=== PATIENT | male | born 1990 | race American Indian/Alaskan Native ===

== ENCOUNTER 2019-10-26 07:20 | Outpatient (CLI) | payer OTHER ==
--- NOTE | 2019-10-26 09:07 | Magnetic Resonance Report ---
MR RIGHT SHOULDER WITHOUT CONTRAST HISTORY: Right shoulder pain, unspecified right rotator cuff tear or rupture COMPARISON: None. TECHNIQUE: Routine noncontrast MRI of the right shoulder obtained. CONTRAST: None. FINDINGS: Supraspinatus tendon: There is thickening and increased intrinsic signal in the distal supraspinatus tendon consistent with tendinosis. No full-thickness tear is identified. Infraspinatus tendon: No significant abnormality. Teres Minor tendon: No significant abnormality. Subscapularis tendon: No significant abnormality. Biceps Tendon: No significant abnormality. Acromioclavicular Joint: No significant abnormality. Labrum: No significant abnormality although arthrogram was not performed. Bone Marrow: No significant abnormality. Muscles: No significant abnormality. Inferior Glenohumeral ligament and Rotator Interval: No significant abnormality. Additional Findings: There is trace fluid in the subdeltoid bursa. IMPRESSION: Tendinosis of the distal supraspinatus tendon is suspected. No focal full-thickness tear is detected. Trace fluid in the subdeltoid bursa. Signer Name: Nahun Chang Jr, MD Signed: 10/26/2019 9:03 AM Workstation Name: [id number]
== END 2019-10-26 07:21 | disposition home or self-care (01) ==
LOC: MRI 07:20 → EDBD 07:20 → MRI 07:21
PROVIDERS: ATTEND Specialist
DX: M75.101 Unspecified rotator cuff tear or rupture of right shoulder, not specified as traumatic (principal)